=== PATIENT | female | born 1980 | race Caucasian/White ===

== ENCOUNTER 2019-06-10 16:00 | Emergency (ER) | payer OTHER ==
[2019-06-10 16:06] VITALS: BP 140/98; TEMP 98.3; BMI 24.2
[2019-06-10] MEDS ORDERED: SODIUM CHLORIDE 1,000 ML IV STA (16:50)
--- NOTE | 2019-06-10 16:57 | PDOC ---
History of Present Illness - General Chief Complaint: Vomiting/Diarrhea Stated Complaint: VOMITING, DIARRHEA Time Seen by Provider: 06/10/19 16:49 Past History - Past Medical History Allergies/Adverse Reactions: Allergies Allergy/AdvReac Type Severity Reaction Status Date / Time No Known Allergies Allergy Verified 06/10/19 16:02 Home Medications: Ambulatory Orders Clonazepam 1 mg PO DAILY PRN 06/10/19 Sertraline HCl [Zoloft -] 50 mg PO DAILY 06/10/19 COPD: No Psychiatric Problems: Yes (ANXIETY, DEPRESSION, PANIC ATTACKS) - Psycho Social/Smoking Cessation Hx Smoking History: Never smoked Have you smoked in the past 12 months: No Information on smoking cessation initiated: No *Physical Exam - Vital Signs Last Vital Signs Temp Pulse Resp BP Pulse Ox 98.3 F 110 H 20 140/98 96 06/10/19 16:00 06/10/19 16:00 06/10/19 16:00 06/10/19 16:00 06/10/19 16:00 Discharge - Discharge Information Condition: Stable - Follow up/Referral - Patient Discharge Instructions - Post Discharge Activity
[2019-06-10 17:35] LABS: HEMATOCRIT 43.1 % (32.4-45.2); HEMOGLOBIN 13.5 GM/dl (10.7-15.3); MCH 31.4 pg (25.7-33.7); MCHC 31.4 g/dl (32.0-36.0); PLATELET COUNT 216 K/MM3 (134-434); RBC 4.31 M/mm3 (3.60-5.2); RDW 13.2 % (11.6-15.6); WHITE BLOOD COUNT 10.1 K/mm3 (4.0-10.8)
[2019-06-10] MEDS ORDERED: FAMOTIDINE 20 MG/50 ML IVPB 20 MG/50 ML MG IVPB ONE ×2 (17:47→17:52)
[2019-06-10] MEDS ORDERED: ONDANSETRON 4 MG/2 ML VIAL IVPB ONE (17:47)
[2019-06-10 17:50] LABS: ALBUMIN 4.4 g/dl (3.4-5.0); BILIRUBIN,TOTAL 0.7 mg/dl (0.2-1); CALCIUM 9.3 mg/dl (8.5-10); CREATININE 0.6 mg/dl (0.55-1.3); POTASSIUM 4.1 mmol/L (3.5-5.1); TOT PROT 7.4 g/dl (6.4-8.2)
[2019-06-10] MEDS ORDERED: ONDANSETRON 4 MG/2 ML VIAL ONE (17:52)
[2019-06-10 18:03] LABS: PLATELET ESTIMATE ADEQUATE
--- NOTE | 2019-06-10 18:45 | PDOC ---
Documentation entered by Sherrell Pierce SCRIBE, acting as scribe for Tramaine Ambrosio MD. Tramaine Ambrosio MD: This documentation has been prepared by the Stan cheek Adrianna, SCRIBE, under my direction and personally reviewed by me in its entirety. I confirm that the documentation accurately reflects all work, treatment, procedures, and medical decision making performed by me. History of Present Illness - General Chief Complaint: Vomiting/Diarrhea Stated Complaint: VOMITING, DIARRHEA Time Seen by Provider: 06/10/19 16:49 - History of Present Illness Initial Comments: The patient is a 39 year old female, with significant PMH depression, anxiety panic disorder, and vertigo, who presents to the ED for evaluation of nausea, vomit, and diarrhea for one day. Patient notes she woke up at 4am this morning, and felt extremely dizzy. She fell back asleep, but woke up again at 9am and was significantly nauseous. She began violently throwing up, and reports 10 episodes in total that are consistent of yellow bile. Patient reports 4-5 episodes of loose, watery stool at this time. She has been unable to eat or drink secondary to the constant vomiting. Patient reports that her body feels as if its on fire, as well as her skin feeling sensitive and stinging all over. She endorses some substernal chest pressure, which she attributes to her cough and is exacerbated with coughing. She had bronchitis last month, and endorses a residual dry cough since. Patient did not receive her flu shot this year, and denies any recent travel or sick contacts. She does note that her and her had raw beef and raw fish last night for dinner, but her is well at this time. Off note, patient notes she has been dealing with an increase in her panic disorders recently. She notes that if she is not dealing with anxiety issues, she is dealing with vertiginous symptoms. Her sister recently tested positive for strep in her blood, and is concerned that she may have this as well. Allergies: NKA, NKDA Surgical History: None reported Social History: Denies EtOH, tobacco, or illicit drug use Past History - Past Medical History Allergies/Adverse Reactions: Allergies Allergy/AdvReac Type Severity Reaction Status Date / Time No Known Allergies Allergy Verified 06/10/19 16:02 Home Medications: Ambulatory Orders Clonazepam 1 mg PO DAILY PRN 06/10/19 Ondansetron [Zofran *Odt*] 4 mg SL TID PRN #20 od.tablet 06/10/19 Sertraline HCl [Zoloft -] 50 mg PO DAILY 06/10/19 COPD: No Psychiatric Problems: Yes (ANXIETY, DEPRESSION, PANIC ATTACKS) - Psycho Social/Smoking Cessation Hx Smoking History: Never smoked Have you smoked in the past 12 months: No Information on smoking cessation initiated: No Review of Systems - Review of Systems Comments:: GENERAL/CONSTITUTIONAL: +Body is on fire. +Skin sensitive and stinging all over. No weakness. HEAD, EYES, EARS, NOSE AND THROAT: No change in vision. No ear pain or discharge. No sore throat. CARDIOVASCULAR: +Substernal chest pressure. No shortness of breath. RESPIRATORY: +Dry cough (residual from bronchitis). No wheezing or hemoptysis. GASTROINTESTINAL: +Nausea. +10 episodes of yellow bile vomit. +4-5 episodes of loose, watery stool. No constipation. GENITOURINARY: No dysuria, frequency, or change in urination. MUSCULOSKELETAL: No joint or muscle swelling or pain. No neck or back pain. SKIN: No rash NEUROLOGIC: +Dizzy. No headache, loss of consciousness, or change in strength/ sensation. ENDOCRINE: No increased thirst. No abnormal weight change. HEMATOLOGIC/LYMPHATIC: No anemia, easy bleeding, or history of blood clots. ALLERGIC/IMMUNOLOGIC: No hives or skin allergy. *Physical Exam - Vital Signs Last Vital Signs Temp Pulse Resp BP Pulse Ox 98.3 F 110 H 20 140/98 96 06/10/19 16:00 06/10/19 16:00 06/10/19 16:00 06/10/19 16:06/10/19 16:00 - Physical Exam GENERAL: Awake, alert, and fully oriented. Extremely anxious appearing, but no physical distress VITAL SIGNS: Afebrile with mild tachycardia. Remainder of vital signs are normal. HEAD: No signs of trauma EYES: PERRLA, EOMI, sclera anicteric, conjunctiva clear ENT: +Dry mucous membranes, but skin turgor is adequate. Auricles normal inspection, hearing grossly normal, nares patent, oropharynx clear without exudates. NECK: Normal ROM, supple, no lymphadenopathy, JVD, or masses LUNGS: Breath sounds equal, clear to auscultation bilaterally. No wheezes, and no crackles HEART: +Tachycardic with HR of 110. Regular rhythm, normal S1 and S2, no murmurs , rubs or gallops ABDOMEN: Soft, nontender, normoactive bowel sounds. No guarding, no rebound. No masses. No organomegaly. EXTREMITIES: Normal range of motion, no edema. No clubbing or cyanosis. No cords, erythema, or tenderness NEUROLOGICAL: Cranial nerves II through XII grossly intact. Normal speech, normal gait SKIN: Warm, Dry, normal turgor, no rashes or lesions noted. ED Treatment Course - LABORATORY CBC & Chemistry Diagram: 06/10/19 17:20 06/10/19 17:20 Discharge - Discharge Information Problems reviewed: Yes Clinical Impression/Diagnosis: Viral gastroenteritis Condition: Improved Disposition: HOME - Admission Yes - Additional Discharge Information Prescriptions: Ondansetron [Zofran *Odt*] 4 mg SL TID PRN #20 od.tablet PRN Reason: Nausea And/Or Vomiting - Follow up/Referral Referrals: Donald Eduardo MD [Staff Physician] - - Patient Discharge Instructions Patient Printed Discharge Instructions: DI for Viral Gastroenteritis -- Adult Additional Instructions: Your lab work shows that you have elevated liver enzymes. This may be due to your present illness, or it may have been present before from some other cause. It is important that you follow-up with your primary physician or online affiliate marketing manager to make sure that this elevation resolves or to have further testing to determine the cause. - Post Discharge Activity
--- NOTE | 2019-06-10 20:39 | PDOC ---
*Physical Exam - Vital Signs Last Vital Signs Temp Pulse Resp BP Pulse Ox 98.3 F 110 H 20 140/98 96 06/10/19 16:00 06/10/19 16:00 06/10/19 16:00 06/10/19 16:00 06/10/19 16:00 - Physical Exam 06/10/19 20:37 awake alert well appearing. abd soft nt nd no ruq tenderness. ED Treatment Course - LABORATORY CBC & Chemistry Diagram: 06/10/19 17:20 06/10/19 17:20 - ADDITIONAL ORDERS Additional order review: Laboratory Results 06/10/19 17:20 Sodium 134 L Potassium 4.1 Chloride 101 Carbon Dioxide 20 L Anion Gap 13 BUN 10.0 Creatinine 0.6 Est GFR (CKD-EPI)AfAm 134.01 Est GFR (CKD-EPI)NonAf 115.63 Random Glucose 130 H Calcium 9.3 Total Bilirubin 0.7 AST 162 H ALT 147 H Alkaline Phosphatase 71 Total Protein 7.4 Albumin 4.4 06/10/19 17:20 RBC 4.31 MCV 100.0 H MCHC 31.4 L RDW 13.2 MPV 9.0 Neutrophils % No Result Required. Lymphocytes % No Result Required. - Medications Given in the ED: ED Medications Discontinued Medications Generic Name Dose Route Start Last Admin Trade Name Freq PRN Reason Stop Dose Admin Sodium Chloride 1,000 mls @ 1,000 mls/hr 06/10/19 16:50 06/10/19 17:23 Normal Saline - IV 06/10/19 17:49 1,000 mls/hr ASDIR STA Administration Famotidine/Sodium Chloride 20 mg in 50 mls @ 100 mls/hr 06/10/19 17:47 17:56 Pepcid 20 Mg Premixed Ivpb - IVPB 06/10/19 18:16 100 mls/hr ONCE ONE Administration Ondansetron HCl 4 mg 06/10/19 17:47 06/10/19 17:55 Zofran Injection IVPB 06/10/19 17:48 4 mg ONCE ONE Administration Medical Decision Making - Medical Decision Making 06/10/19 20: 39 yo F with h/o prior lft elevation fatty liver, here wit n/v / d . states was having intractable vomiting. was singed out to me pending reassessment iv hydration. at this point pt feels improved. tolerating PO in ED. repeat abd exam is nontender. states she is aware of her liver test abnormality. was told she has fatty liver. has seen GI in the past. encouraged to follow up [facility] GI return for any problems or concerns. Discharge - Discharge Information Problems reviewed: Yes Clinical Impression/Diagnosis: Viral gastroenteritis Condition: Improved Disposition: HOME - Additional Discharge Information Prescriptions: Ondansetron [Zofran *Odt*] 4 mg SL TID PRN #20 od.tablet PRN Reason: Nausea And/Or Vomiting - Follow up/Referral Referrals: Donald Eduardo MD [Staff Physician] - - Patient Discharge Instructions Patient Printed Discharge Instructions: DI for Viral Gastroenteritis -- Adult Additional Instructions: Your lab work shows that you have elevated liver enzymes. This may be due to your present illness, or it may have been present before from some other cause. It is important that you follow-up with your primary physician or regulatory analyst to make sure that this elevation resolves or to have further testing to determine the cause. - Post Discharge Activity
[2019-06-10 20:47] VITALS: PULSE 87
== END 2019-06-10 20:47 | disposition home or self-care (01) ==
LOC: FER 16:00
PROC: 3E03329 Introduction of Other Anti-infective into Peripheral Vein, Percutaneous Approach (ICD-10-PCS; principal; 2019-06-10)
PROC: 3E0337Z Introduction of Electrolytic and Water Balance Substance into Peripheral Vein, Percutaneous Approach (ICD-10-PCS; 2019-06-10)
DX: A08.4 Viral intestinal infection, unspecified (principal); F41.0 Panic disorder [episodic paroxysmal anxiety]; F32.9 Major depressive disorder, single episode, unspecified
CPT/HCPCS: 36415; 80053; 85025; 96361; 96365; 96375; 99283-25; J7030

== ENCOUNTER 2021-09-14 17:10 | Inpatient (IN) | payer OTHER ==
[2021-09-14 18:00] LABS: HCG,QUALITATIVE URINE Negative
[2021-09-14 18:25] LABS: ALBUMIN 4.7 g/dl (3.4-5.0); BILIRUBIN,TOTAL 1.4 mg/dl (0.2-1); CALCIUM 9.4 mg/dl (8.5-10); CREATININE 0.6 mg/dl (0.55-1.3); TOT PROT 7.6 g/dl (6.4-8.2)
[2021-09-14 18:33] LABS: EPITHELIAL CELLS MODERATE /hpf; URINE MUCUS 1+
[2021-09-14 19:35] LABS: BASO % 0.6 % (0-2.0); EOS % 0.2 % (0-4.5); HEMATOCRIT 39.2 % (32.4-45.2); HEMOGLOBIN 13.3 GM/dL (10.7-15.3); LYMPH % 9.8 % (8-40); MCH 31.6 pg (25.7-33.7); MCHC 33.9 g/dl (32.0-36.0); MEAN CELL VOLUME 93.3 fl (80-96); MEAN PLT VOLUME 9.4 fl (7.5-11.1); MONO % 11.7 % (3.8-10.2); NEUT % 77.7 % (42.8-82.8); PLATELET COUNT 165 10^3/uL (134-434); RBC 4.21 M/mm3 (3.60-5.2); WHITE BLOOD COUNT 8.1 K/mm3 (4.0-10.0)
[2021-09-14] MEDS ORDERED: SODIUM CHLORIDE 1,000 ML IV STA (22:16)
[2021-09-14] MEDS ORDERED: morphine CARPU-JECT 2 MG/1 ML DISP.SYRIN IVPUSH ONE (23:06)
[2021-09-14] MEDS ORDERED: morphine SULFATE 4 MG/ML VIAL ONE (23:07)
[2021-09-14] MEDS ORDERED: ONDANSETRON 4 MG/2 ML VIAL ONE (23:08)
[2021-09-15 02:42] VITALS: BMI 23.3
[2021-09-15] MEDS: LACTATED RINGERS SOLUTION 1,000 ML IV SCH (02:44)
[2021-09-15] MEDS: morphine SULFATE 4 MG/ML VIAL IVPUSH PRN ×3 (03:07→22:41)
[2021-09-15] MEDS ORDERED: ONDANSETRON 4 MG/2 ML VIAL IVPUSH PRN (04:00)
[2021-09-15 08:24] LABS: ALBUMIN 3.4 g/dl (3.4-5.0); ALK PHOS 47 U/L (45-117); AMYLASE 348 U/L (25-115); ANION GAP 10 MMOL/L (8-16); BILIRUBIN,TOTAL 1.2 mg/dl (0.2-1); CALCIUM 8.2 mg/dl (8.5-10); CHLORIDE 103 mmol/L (98-107); CO2 21 mmol/L (21-32); CREATININE 0.5 mg/dl (0.55-1.3); GLUCOSE,RANDOM 73 mg/dl (74-106); MAGNESIUM 1.4 mg/dL (1.8-2.4); SGOT/AST 135 U/L (15-37); SGPT/ALT 139 U/L (13-61); SODIUM 134 mmol/L (136-145); TOT PROT 5.6 g/dl (6.4-8.2)
[2021-09-15 09:09] LABS: BASO % 0.6 % (0-2.0); EOS % 1.4 % (0-4.5); HEMATOCRIT 33.4 % (32.4-45.2); MCH 31.3 pg (25.7-33.7); MCHC 33.1 g/dl (32.0-36.0); MEAN CELL VOLUME 94.5 fl (80-96); MEAN PLT VOLUME 9.4 fl (7.5-11.1); MONO % 14.7 % (3.8-10.2); NEUT % 65.3 % (42.8-82.8); PLATELET COUNT 150 10^3/uL (134-434); RBC 3.53 M/mm3 (3.60-5.2); RDW 12.8 % (11.6-15.6); WHITE BLOOD COUNT 7.1 K/mm3 (4.0-10.0)
[2021-09-15] MEDS: FAMOTIDINE 20 MG/50 ML IVPB 20 MG/50 ML MG IVPB SCH ×2 (12:38→21:08)
[2021-09-15] MEDS ORDERED: MAGNESIUM 1GM/D5W - 1 GM/100 ML IVPB IVPB ONE (16:24)
[2021-09-15] MEDS: KCL 10 MEQ IVPB 10 MEQ/100 ML INFUS.BAG IVPB SCH ×3 (16:41→21:09)
[2021-09-16] MEDS: clonazePAM 0.5 MG TABLET PO PRN ×2 (02:10→21:40)
[2021-09-16] MEDS: LACTATED RINGERS SOLUTION 1,000 ML IV SCH (05:47)
[2021-09-16 08:07] LABS: ALBUMIN 3.2 g/dl (3.4-5.0); BILIRUBIN,TOTAL 1.2 mg/dl (0.2-1); CALCIUM 8.6 mg/dl (8.5-10); CREATININE 0.6 mg/dl (0.55-1.3); MAGNESIUM 1.7 mg/dL (1.8-2.4); TOT PROT 5.4 g/dl (6.4-8.2)
[2021-09-16 08:11] LABS: ALBUMIN 3.2 g/dl (3.4-5.0); BILIRUBIN,DIRECT 0.3 mg/dL (0.0-0.2); BILIRUBIN,TOTAL 1.1 mg/dl (0.2-1); TOT PROT 5.5 g/dl (6.4-8.2)
[2021-09-16] MEDS: FAMOTIDINE 20 MG/50 ML IVPB 20 MG/50 ML MG IVPB SCH ×2 (09:34→21:40)
[2021-09-16] MEDS: SERTRALINE HCL 25 MG TABLET (FP) PO SCH (09:34)
[2021-09-16] MEDS ORDERED: MAGNESIUM SULF 50% (8.12 MEQ/2 ML-1 GM VIAL) IVPB ONE (09:35)
[2021-09-16 09:51] LABS: HEMOGLOBIN 10.7 GM/dL (10.7-15.3); LYMPH % 27.8 % (8-40); MCH 31.4 pg (25.7-33.7); MCHC 33.4 g/dl (32.0-36.0); MEAN CELL VOLUME 94.1 fl (80-96); MEAN PLT VOLUME 9.5 fl (7.5-11.1); MONO % 19.3 % (3.8-10.2); NEUT % 49.9 % (42.8-82.8); PLATELET COUNT 131 10^3/uL (134-434); RBC 3.41 M/mm3 (3.60-5.2); RDW 12.7 % (11.6-15.6); WHITE BLOOD COUNT 4.3 K/mm3 (4.0-10.0)
[2021-09-16] MEDS: morphine SULFATE 4 MG/ML VIAL IVPUSH PRN (10:44)
[2021-09-16] MEDS: ENOXAPARIN NA (PORCINE) 40 MG/0.4 ML DISP.SYRIN SQ SCH (11:15)
[2021-09-16 15:07] LABS: SARS-CoV-2 NAA Not Detected (Not Detected)
[2021-09-16] MEDS ORDERED: ACETAMINOPHEN 1000 MG/100 ML BAG IVPB ONE (22:20)
[2021-09-17] MEDS: LACTATED RINGERS SOLUTION 1,000 ML IV SCH (02:20)
[2021-09-17 09:03] LABS: ALBUMIN 3.3 g/dl (3.4-5.0); CREATININE 0.5 mg/dl (0.55-1.3); MAGNESIUM 1.7 mg/dL (1.8-2.4); TOT PROT 5.7 g/dl (6.4-8.2)
[2021-09-17 10:00] LABS: HEMATOCRIT 32.6 % (32.4-45.2); HEMOGLOBIN 10.9 GM/dL (10.7-15.3); MCH 31.1 pg (25.7-33.7); MCHC 33.4 g/dl (32.0-36.0); MEAN CELL VOLUME 93.1 fl (80-96); MEAN PLT VOLUME 9.5 fl (7.5-11.1); PLATELET COUNT 140 10^3/uL (134-434); RDW 13.1 % (11.6-15.6); WHITE BLOOD COUNT 3.5 K/mm3 (4.0-10.0)
[2021-09-17] MEDS: ENOXAPARIN NA (PORCINE) 40 MG/0.4 ML DISP.SYRIN SQ SCH (10:08)
[2021-09-17] MEDS: FAMOTIDINE 20 MG/50 ML IVPB 20 MG/50 ML MG IVPB SCH (10:08)
[2021-09-17] MEDS: SERTRALINE HCL 25 MG TABLET (FP) PO SCH (10:09)
[2021-09-17 11:28] LABS: PLATELET ESTIMATE SLT DECREASE
[2021-09-17] MEDS ORDERED: MAGNESIUM 2GM/50ML STERILE WATER IVPB IVPB ONE (11:30)
[2021-09-17 14:41] VITALS: BP 122/81; PULSE 65; TEMP 99
== END 2021-09-17 15:05 | disposition home or self-care (01) | DRG 440 ==
LOC: FER 17:10 → FM/S 09-15 01:26 → OBSVTOIN 09-15 16:08
PROVIDERS: ADMIT Internal Medicine; ATTEND Nurse Practitioner Acute Care
DX: K85.90 Acute pancreatitis without necrosis or infection, unspecified (principal); R74.01 Elevation of levels of liver transaminase levels; E83.42 Hypomagnesemia; F41.8 Other specified anxiety disorders; E87.6 Hypokalemia
CPT/HCPCS: 36415; 71045-TC-FY; 74177-TC; 76705-TC; 80053; 80076; 80307; 81003; 81015; 82150; 83690; 83735; 84100; 84703; 85025; 87086; 93005; 99285-25; C9803-CS; G0378; Q9967; U0003; U0005